=== PATIENT | female | born 1985 | race Two or more races ===

== ENCOUNTER 2018-06-15 06:42 | Inpatient (IN) | payer OTHER ==
[~2018-06-15] VITALS: Ht 162.6 cm; Wt 3.6 kg
[2018-06-15] MEDS ORDERED: PRENATAL 19 TA1 EACH PO (10:05)
== END 2018-06-18 11:47 | disposition home or self-care (01) | DRG 788 ==
LOC: OB/GYN 06:42 → LDR 06:42 → O/R 16:09 → OB/GYN 20:19 → LDR 06-16 11:59 → OB/GYN 06-18 11:47
PROVIDERS: Obstetrics & Gynecology
PROC: 3E0P7VZ Introduction of Hormone into Female Reproductive, Via Natural or Artificial Opening (ICD-10-PCS; 2018-06-15)
PROC: 4A1HXCZ Monitoring of Products of Conception, Cardiac Rate, External Approach (ICD-10-PCS; 2018-06-15)
PROC: 10D00Z1 Extraction of Products of Conception, Low, Open Approach (ICD-10-PCS; principal; 2018-06-15 15:00)
DX: O61.0 Failed medical induction of labor (principal); Z3A.39 39 weeks gestation of pregnancy; Z37.0 Single live birth; Z22.330 Carrier of Group B streptococcus